=== PATIENT | female | born 1965 | race Caucasian/White ===

== ENCOUNTER → 2016-06-16 | Outpatient (CLI) | payer OTHER ==
[~2016-06-16] VITALS: Ht 157.5 cm; Wt 71.2 kg
[~2016-06-16] MED LIST: ALPHAGAN P10 ML OP; AUGMENTIN 875875 M1 PO; CLONAZEPAM 1 MG1 M1 PO; CYMBALTA30 MG PO; DOXYCYCLINE 10100 MG PO; ESTRACE0.5 MG PO; ESTRADIOL 1 MG T1 M1 PO; FENTANYL PA12 MCG/HR TP; HYDROCODONE-APA1 TA1 PO; LIPITOR 20 MG T20 M1 PO; LUMIGAN2.5 M1 OP; MOBIC15 MG PO; PERCOCET 5-3251 EACH PO; SEROQUEL 100 M100 M1 PO; SEROQUEL 50 MG50 MG PO; SEROQUEL300 MG PO; TERCONAZOLE20 GM VG; ZANTAC 150MG T150 MG PO
--- NOTE | ~2016-06-16 | HPC ---
[facility] [place] [address] [place] [address] PAIN MANAGEMENT CONSULTATION Name: BEULAH KUMAR Room #: REG ROXANE MFidencioTaj.#: [id number] Admission: 06/16/16 Attend Phys: Rosaura Garcia MD Discharge: Date of : 61 Report #: [id number] THIS REPORT FOR: //name// CC: Lurdes Garcia DATE OF SERVICE: 06/16/2016 FOLLOWUP HISTORY: The patient is a 51-year-old female who has been followed in the pain clinic because of chronic pain involving her right knee. She states that she has had a number of surgeries on her knee. It continues to be problematic. She finds that her current medical regimen of meloxicam and fentanyl are quite efficacious. She is able to engage in activities of daily living she would not be able to without their use. She has been told that she is better served waiting for knee replacement until she gets a bit older. She has not had any problems with the medications. Denies any problems with her kidneys. PHYSICAL EXAMINATION: The patient is alert. She appears to be taking her medications as prescribed. She has not fallen since we saw her last. Height 157 cm, weight 72 kilograms. BMI is 28.7. She has pain in the right knee area. There is no evidence of significant swelling or trauma at this juncture. IMPRESSION: Chronic intractable right knee pain with osteoarthritis. RECOMMENDATION: We discussed the treatment option with the patient. We will continue with her current medical regimen of fentanyl 12 mcg q. 72 hours and meloxicam 15 mg 1 p.o. daily. She will follow up in the future as needed. We would like to thank you for letting us participate in her care. We hope she continues to improve. By: 1200 [id number] Rosaura Garcia MD /nt
[2016-06-16 10:26] VITALS: BP 119/70
== END ==
LOC: PAIN 07:05
DX: M17.11 Unilateral primary osteoarthritis, right knee (principal); F17.200 Nicotine dependence, unspecified, uncomplicated; F10.21 Alcohol dependence, in remission

== ENCOUNTER → 2016-07-13 | Outpatient (CLI) | payer OTHER ==
[~2016-07-13] VITALS: Ht 157.5 cm; Wt 70.1 kg
--- NOTE | ~2016-07-13 | HPC ---
[facility] [place] [place] [address] PAIN MANAGEMENT CONSULTATION Name: BEULAH KUMAR Room #: REG ROXANE Cari.#: [id number] Admission: 07/13/16 Attend Phys: Mac Dejesus MD Discharge: Date of : 61 Report #: [id number] THIS REPORT FOR: //name// CC: Lurdes Schumacher DATE OF SERVICE: 07/13/2016 Followup visit for intractable right knee pain due to osteoarthritis. The patient returns to pain clinic today with her grandson. She has pain in her right knee, which I have been helping her with. She has done well with this combination of meloxicam 15 mg once daily and the lowest dose fentanyl patch 12 mcg q. 72 hours. She denies any side effects. She has been wearing the patch on her knee. I have told her that the medication works systemically and she can place it elsewhere, but for whatever reason, she seems to think it works better there. She has been on time for her prescriptions. Although not impossible, these flat fentanyl patches would be very challenging to divert. I will repeat urine drug screen at next visit. Her health otherwise has been okay. She continues to smoke a pack a day and she was counseled about that. She also drinks alcohol 5-6 units per week and we have talked about the need to be cautious about the use of centrally acting medications and alcohol. She does not exercise regularly, but does swim and is able to perform activities of daily living including housekeeping. She watches her grandchildren. She denies significant side effects from her medication. No drowsiness. No constipation. MEDICATIONS: Reviewed and reconciled. PHYSICAL EXAMINATION: GENERAL: She is pleasant, alert and oriented. Does not show any signs of depression, anxiety or overmedication. BMI is 28.3. VITAL SIGNS: Blood pressure 110/64, heart rate 92 and respirations 16. EXTREMITIES: She has tenderness over her right knee. Mild crepitus is noted. IMPRESSION: Osteoarthritis, right knee. PLAN: I will continue her current regimen of medications. I spent more time really discussing the side effects of the nonsteroidal inflammatory drugs she is taking and she should be cautious about GI and renal side effects. She was [facility] [address] [place] [address] PAIN MANAGEMENT CONSULTATION Name: BEULAH KUMAR AVRIL [facility] [id number] Admission: 07/13/16 Attend Phys: Mac Dejesus MD Discharge: Date of : 61 Report #: [id number] instructed to drink plenty of fluids, especially during the hot months. She should follow up with her primary care physician regularly. <ELECTRONICALLY SIGNED> By: Mac Dejesus MD 07/13/16 1714 [id number] Mac Dejesus MD /nt
[2016-07-13 10:31] VITALS: BP 110/64
== END | disposition home or self-care (01) ==
LOC: PAIN 06:58
DX: M17.11 Unilateral primary osteoarthritis, right knee (principal); F17.210 Nicotine dependence, cigarettes, uncomplicated

== ENCOUNTER → 2016-10-05 | Outpatient (CLI) | payer OTHER ==
[~2016-10-05] VITALS: Ht 157.5 cm; Wt 71.2 kg
[~2016-10-05] MED LIST changes: +IBUPROFEN 800800 M1 PO; +OMEPRAZOLE20 M1 PO
--- NOTE | ~2016-10-05 | HPC ---
[facility] [address] [place] [address] PAIN MANAGEMENT CONSULTATION Name: BEULAH KUMAR Room #: REG ROXANE [place]cala.#: [id number] Admission: 10/05/16 Attend Phys: Mac Dejesus MD Discharge: Date of : 61 Report #: [id number] THIS REPORT FOR: //name// CC: CORY Jean DATE OF SERVICE: 10/05/2016 Followup visit for chronic intractable right knee pain due to osteoarthritis. The patient returns to pain clinic today for a 25-minute followup visit. She seems to be doing okay with medications provided through our clinic. She is on a very low dose fentanyl patch 12 mcg, which she wears on her knee. I discussed this with her today that she can wear it on her arm, but is convinced that it works better there and so I have no problem with it as long as it is carefully applied and remains in place. She has been using meloxicam, but feels higher dose ibuprofen has been more helpful. She has taken 800 mg twice a day on some occasions in the past and I have agreed to give her a trial with that, although I talked to her extensively about the GI side effects. She will watch carefully for any changes in her abdominal pain or sensation and that she should watch her stools carefully for any darkening of the stool suggesting bleeding. She was placed on omeprazole 20 mg once daily in combination with ibuprofen 800 mg twice daily to supplement. Hopefully the combination of this low dose opioid as well as the anti-inflammatory will work effectively for her. She continues to care for two of her own grandchildren. Her daughter, she says is running around and does not do that. Her grandchildren are major responsibility and she is grateful for the pain, which allows her to keep up with them. She continues to smoke and she was counseled. She continues to drink alcohol occasionally and I have cautioned her due to the fact that she is on an opioid, even low dose of this can be additive and she should absolutely avoid any mechanical equipment and should not drive at any time while consuming alcohol, particularly with the use of opioids. PHYSICAL EXAMINATION: She is a pleasant female. Blood pressure is 116/66, heart rate is 92, respirations 16. BMI is 28.7. She has tenderness around her right knee with weightbearing. There is mild crepitus noticed with flexion and extension. IMPRESSION: 1. Osteoarthritis, right knee. [facility] [address] [place] [address] PAIN MANAGEMENT CONSULTATION Name: BEULAH KUMAR AVRIL Room #: REG CLI Stuart#: [id number] Admission: 10/05/16 Attend Phys: Mac Dejesus MD Discharge: Date of : 61 Report #: [id number] 2. Management of high risk medication. PLAN: 1. I have renewed her fentanyl patches 12 mcg q. 72 hours with important instructions regarding safeguarding. 2. Ibuprofen 800 mg b.i.d. 3. Omeprazole 20 mg daily. Followup visit planned in the pain clinic in 3 months. By: 1641 2037 Mac Dejesus MD /carolyn
[2016-10-05 13:52] VITALS: BP 116/66
== END | disposition home or self-care (01) ==
LOC: PAIN 07:39
DX: M17.11 Unilateral primary osteoarthritis, right knee (principal); F17.210 Nicotine dependence, cigarettes, uncomplicated

== ENCOUNTER → 2017-03-26 | Outpatient (CLI) | payer OTHER ==
[~2017-03-26] VITALS: Ht 162.6 cm; Wt 69.2 kg
[~2017-03-26] MED LIST changes: +AUGMENTIN 875-1 EACH PO; +DURAGESIC1 EACH TRANSDERM; +VENTOLIN HFA 1818 GM INH
--- NOTE | ~2017-03-26 | HPC ---
[facility] [place] [address] [place] [address] PAIN MANAGEMENT CONSULTATION Name: BEULAH KUMAR Room #: REG ROXANE Cari.#: [id number] Admission: 03/26/17 Attend Phys: Mac Dejesus MD Discharge: Date of : 61 Report #: [id number] THIS REPORT FOR: //name// CC: Lurdes Dejeuss DATE OF SERVICE: 03/26/2017 DATE OF REGISTRATION: 03/26/2017. Followup visit for severe pain, right knee with osteoarthritis. The patient is here today for fentanyl patches 12 mcg. I have stopped all oral medications and provided with this medication in 2014. She has been on time for all of her treatments. We have tried other measures to ease her pain including knee injections in the past. This fentanyl patch has worked effectively. I have told her that she does not need to wear it on her knee, but I note that today she is. She reports that when she is up on her feet, the pain is severe. She helps take care of grandchildren. She needs to be active. With pain medication she scores her pain as 2. I reviewed the Medicare required PQRS. She does have osteoarthritis of the right knee and left knee. She has no history of rheumatoid arthritis. She controls her weight with a BMI of 26.0. She is not hypertensive, blood pressure 115/68. She has used a cane in the past, but has not fallen in the last 3 months and I would not consider her a fall risk. She is not on blood thinners. I made her sign an opioid agreement and she has reviewed it and signed it again in 2017. She is at moderate risk for misuse of medication. It is only on the most extreme circumstances that someone might misuse mcg of fentanyl patch. She has a functional assessment tool performance with a score of 19, which shows that the pain impacts her very minimally. IMPRESSION: 1. Chronic osteoarthritis, right knee. 2. Spondylosis, lumbar spine. 3. Management of fentanyl patches 12 mcg q.72 hours. She is on schedule. PLAN: 1. I will perform buccal drug screen today to assure the medication is in her system. It should be I see the patch on her knee. 2. Discussion about the importance of safeguarding medication, particularly with young children in the house. Recommendations for disposal of the patch were also reviewed with her. [address] [address] PAIN MANAGEMENT CONSULTATION Name: BEULAH KUMAR Room #: REG ROXANE [place].#: [id number] Admission: 03/26/17 Attend Phys: Mac Dejesus MD Discharge: Date of : 61 Report #: [id number] 3. Follow up in the pain clinic in 3 months. Dated prescriptions for today, released under terms of our written agreement. <ELECTRONICALLY SIGNED> By: Mac Dejesus MD 04/04/17 1640 1152 29 Mac Dejesus MD /nt
[2017-03-26 10:54] VITALS: BP 115/68
== END ==
LOC: PAIN 07:19
DX: M17.11 Unilateral primary osteoarthritis, right knee (principal); M47.896 Other spondylosis, lumbar region; F11.90 Opioid use, unspecified, uncomplicated

== ENCOUNTER → 2017-07-05 | Outpatient (CLI) | payer OTHER ==
[~2017-07-05] VITALS: Ht 162.6 cm; Wt 72.6 kg
[~2017-07-05] MED LIST changes: +DICLOFENAC SODI75 MG PO; +GYNODIOL0.5 MG PO; +HYDROXYZINE HCL10 M1 PO; +MOBIC7.5 MG PO
--- NOTE | ~2017-07-05 | HPC ---
[facility] [place] [address] [place] [address] PAIN MANAGEMENT CONSULTATION Name: BEULAH KUMRA Room #: REG ROXANE Cari.#: [id number] Admission: 07/05/17 Attend Phys: Mac Dejesus MD Discharge: Date of : 61 Report #: [id number] THIS REPORT FOR: //name// CC: Lurdes Dejesus DATE OF SERVICE: 07/05/2017 Followup visit for chronic osteoarthritis of the right knee, lumbar spondylosis and severe anxiety. The patient was in the pain clinic today for 25-minute consultation visit. She is under a lot of stress and has been help managing taking care of her grandchildren as we noted before. She is helping out with multiple family members whose family lives are in a bit of disarray. She oftentimes has to take care of her children and even her grandchildren and it sounds like there is a revolving door at her house as people are coming and going at all times. This creates a great deal of anxiety. She has an anxiety disorder and sees a psychiatrist. She has been told that she can no longer receive Klonopin for treatment of this anxiety disorder if she is on opioids and she has chosen to go off of them. We discussed strategies today for managing going off of her opioid medication. She is only on a 12 mcg patch. This is relatively low. I think she can go off of it without significant withdrawal. She can use her benzodiazepine medication to assist with any withdrawal symptoms. In regards to her osteoarthritis pain, we talked about different trials of nonsteroidal anti-inflammatory drugs. She has never had meloxicam nor has she had diclofenac. I have given her an opportunity to have two separate medication trials and I have given her 60 of each tablet. There were strict instructions to take only one at a time and these were written out on her prescription as well. I want her to try one week of meloxicam at 15 mg daily and then she can also try a week of the nonsteroidal diclofenac. She may use these intermittently to determine which one is most effective. The amount of 60 tablets should allow her to complete this trial effectively. She understands that there are GI, renal and cardiac side effects all of which were discussed in today's visit. She will be cautious about her use. PHYSICAL EXAMINATION: GENERAL: She is pleasant, very forthcoming about her difficult family situations. VITAL SIGNS: Her blood pressure is 125/75 and heart rate 95. Her BMI is 27.5. [address] [address] PAIN MANAGEMENT CONSULTATION Name: BEULAH KUMAR Room #: REG CLI Fabio#: [id number] Admission: 07/05/17 Attend Phys: Mac Dejesus MD Discharge: Date of : 61 Report #: [id number] MUSCULOSKELETAL: She walks with an antalgic gait. She wears a brace on her right knee. There is localized tenderness. There is some mild crepitus with flexion and extension. IMPRESSION: 1. Chronic osteoarthritis of the right knee. 2. Lumbar spine pain with spondylosis. 3. Management of medications now off of opioids. I provided her with a written note to her psychiatrist that we have taken her off of opioids and will not be prescribing them. The prescriptions for diclofenac and meloxicam will be provided as noted above and I will see her back in the pain clinic in 3 months. By: [id number] Mac Dejesus MD /nt
[2017-07-05 14:21] VITALS: BP 125/75
== END ==
LOC: PAIN 06-21 07:16
DX: M17.11 Unilateral primary osteoarthritis, right knee (principal); M47.896 Other spondylosis, lumbar region; F11.90 Opioid use, unspecified, uncomplicated